=== PATIENT | male | born 1970 | race Caucasian/White ===

== ENCOUNTER 2024-08-21 13:07 | Inpatient (IN) | payer OTHER ==
[2024-08-21 13:50] VITALS: BMI 22.2
[2024-08-21] MEDS ORDERED: POLYETHYLENE GLYCOL (HEALTHYLAX) 3350 17 GM PACKET PO PRN (16:05)
[2024-08-21] MEDS ORDERED: ACETAMINOPHEN 325 MG TABLET (FP) PO PRN (16:05)
[2024-08-21] MEDS ORDERED: IBUPROFEN 400 MG TABLET (FP) PO PRN (16:05)
[2024-08-21] MEDS ORDERED: hydrOXYzine PAMOATE 25 MG CAPSULE (FP) PO PRN (16:05)
[2024-08-21] MEDS ORDERED: BENZOCAINE/MENTHOL (CHLORASEPTIC ) LOZENGE MM PRN (16:05)
[2024-08-21] MEDS ORDERED: NICOTINE POLACRILEX 4 MG LOZENGE BC PRN (16:05)
[2024-08-21] MEDS ORDERED: NALOXONE (NARCAN) HCL 4 MG/0.1 ML SPRAY NS PRN (16:05)
[2024-08-21] MEDS ORDERED: MAGNESIUM HYDROX 2400MG/30ML ORAL SUSPENSION 30 ML CUP PO PRN (16:05)
[2024-08-21] MEDS ORDERED: IBUPROFEN 600 MG TABLET (FP) PO PRN (16:05)
[2024-08-21] MEDS ORDERED: DICYCLOMINE HCL 10 MG CAPSULE PO PRN (16:05)
[2024-08-21] MEDS ORDERED: MAG HYDROX/AL HYDROX/SIMETH 30 ML UNIT-DOSE CUP PO PRN (16:05)
[2024-08-21] MEDS ORDERED: ONDANSETRON *ODT* 4 MG TABLET SL PRN (16:05)
[2024-08-21] MEDS ORDERED: diazePAM 5 MG TABLET PO PRN (16:05)
[2024-08-21] MEDS ORDERED: BENZONATATE 200 MG CAPSULE PO PRN (16:05)
[2024-08-21] MEDS ORDERED: guaiFENesin 600 MG TABLET.ER (FP) PO PRN (16:05)
[2024-08-21] MEDS ORDERED: diazePAM 5 MG TABLET ONE (16:39)
[2024-08-21] MEDS: diazePAM 5 MG TABLET PO SCH (16:47)
[2024-08-21] MEDS ORDERED: NICOTINE 21 MG/24 HOURS TOPICAL PATCH ONE (16:57)
[2024-08-21] MEDS: NICOTINE 21 MG/24 HOURS TOPICAL PATCH TD SCH (17:00)
[2024-08-21] MEDS: NALTREXONE HCL 50 MG TABLET PO ONE (17:30)
[2024-08-21] MEDS: METHOCARBAMOL 500 MG TABLET PO PRN (22:18)
[2024-08-21] MEDS: MELATONIN 5 MG TABLETS PO SCH (22:18)
[2024-08-21] MEDS: THIAMINE 100 MG TABLET PO SCH (22:18)
[2024-08-22] MEDS: NICOTINE 21 MG/24 HOURS TOPICAL PATCH TD SCH (09:10)
[2024-08-22] MEDS: NALTREXONE HCL 50 MG TABLET PO SCH (10:08)
[2024-08-22] MEDS: PRENATAL VITAMINS W/ FOLIC ACID TABLET (FP) PO SCH (10:08)
[2024-08-22 11:25] LABS: CHLORIDE 105 mmol/L (98-107); POTASSIUM 4.1 mmol/L (3.5-5.1); SODIUM 140 mmol/L (136-145)
[2024-08-22 11:31] LABS: HEMATOCRIT 49.3 % (35.4-49); HEMOGLOBIN 16.3 GM/dL (11.7-16.9); MCH 31.6 pg (25.7-33.7); MEAN CELL VOLUME 95.6 fl (80-96); PLATELET COUNT 217 10^3/uL (134-434); RBC 5.15 M/mm3 (4.00-5.60); RDW 14.4 % (11.9-15.9); WHITE BLOOD COUNT 7.7 K/mm3 (4.0-10.0)
[2024-08-22 11:37] LABS: CALCIUM 9.3 mg/dL (8.5-10.1)
[2024-08-22 11:38] LABS: ALBUMIN 3.6 g/dl (3.4-5.0); ANION GAP 6 mmol/L (4-13); CO2 30 mmol/L (21-32); GLUCOSE,RANDOM 109 mg/dL (74-106)
[2024-08-22 11:41] LABS: CREATININE 0.9 mg/dL (0.55-1.3); SGOT/AST 51 U/L (15-37); SGPT/ALT 46 U/L (13-61)
[2024-08-22 11:43] LABS: ALK PHOS 69 U/L (45-117); BILIRUBIN,TOTAL 1.3 mg/dL (0.2-1); TOT PROT 7.7 g/dl (6.4-8.2)
[2024-08-22] MEDS: BISMUTH SUBSALICYLATE 524 MG/30 ML PO PRN (14:53)
[2024-08-23] MEDS: diazePAM 5 MG TABLET PO SCH (05:18)
[2024-08-23] MEDS: LOPERAMIDE HCL 2 MG CAPSULE PO PRN (09:48)
[2024-08-23] MEDS: PANTOPRAZOLE 40 MG TABLET PO SCH (09:48)
[2024-08-23] MEDS: NICOTINE POLACRILEX 4 MG GUM BUC PRN (09:51)
[2024-08-24] MEDS: diazePAM 5 MG TABLET PO SCH (05:35)
[2024-08-25] MEDS: diazePAM 5 MG TABLET PO ONE (05:31)
[2024-08-25 09:26] VITALS: BP 131/94; PULSE 85; RESP 19; TEMP 98.4
== END 2024-08-25 11:12 | disposition home or self-care (01) | DRG 774 ==
LOC: YASAS 13:07 → Y3N 16:39
PROVIDERS: ADMIT Allergy & Immunology; ATTEND Allergy & Immunology
PROC: HZ2ZZZZ Detoxification Services for Substance Abuse Treatment (ICD-10-PCS; principal; 2024-08-21)
DX: F10.230 Alcohol dependence with withdrawal, uncomplicated (principal); F14.20 Cocaine dependence, uncomplicated; F17.210 Nicotine dependence, cigarettes, uncomplicated; G47.00 Insomnia, unspecified; K21.9 Gastro-esophageal reflux disease without esophagitis
CPT/HCPCS: 36415; 80053; 80305; 80307; 85027; 86780; 93005; 93010

== ENCOUNTER 2024-12-18 10:51 | Inpatient (IN) | payer OTHER ==
[2024-12-18 11:19] VITALS: BMI 21.1
[2024-12-18] MEDS ORDERED: NALOXONE (NARCAN) HCL 4 MG/0.1 ML SPRAY NS PRN (11:50)
[2024-12-18] MEDS ORDERED: BENZOCAINE/MENTHOL (CHLORASEPTIC ) LOZENGE MM PRN (11:50)
[2024-12-18] MEDS ORDERED: guaiFENesin 600 MG TABLET.ER (FP) PO PRN (11:50)
[2024-12-18] MEDS ORDERED: BISMUTH SUBSALICYLATE 262 MG/15 ML BTL PO PRN (11:50)
[2024-12-18] MEDS ORDERED: MAG HYDROX/AL HYDROX/SIMETH 30 ML UNIT-DOSE CUP PO PRN (11:50)
[2024-12-18] MEDS ORDERED: ONDANSETRON *ODT* 4 MG TABLET SL PRN (11:50)
[2024-12-18] MEDS ORDERED: MAGNESIUM HYDROX 2400MG/30ML ORAL SUSPENSION 30 ML CUP PO PRN (11:50)
[2024-12-18] MEDS ORDERED: ACETAMINOPHEN 325 MG TABLET (FP) PO PRN (11:50)
[2024-12-18] MEDS ORDERED: IBUPROFEN 600 MG TABLET (FP) PO PRN (11:50)
[2024-12-18] MEDS ORDERED: IBUPROFEN 400 MG TABLET (FP) PO PRN (11:50)
[2024-12-18] MEDS ORDERED: DICYCLOMINE HCL 10 MG CAPSULE PO PRN (11:50)
[2024-12-18] MEDS ORDERED: LOPERAMIDE HCL 2 MG CAPSULE PO PRN (11:50)
[2024-12-18] MEDS ORDERED: BENZONATATE 200 MG CAPSULE PO PRN (11:50)
[2024-12-18] MEDS ORDERED: diazePAM 5 MG TABLET PO PRN (11:50)
[2024-12-18] MEDS ORDERED: POLYETHYLENE GLYCOL (HEALTHYLAX) 3350 17 GM PACKET PO PRN (11:50)
[2024-12-18] MEDS ORDERED: NALTREXONE HCL 50 MG TABLET PO ONE (11:53)
[2024-12-18] MEDS: NALTREXONE HCL 50 MG TABLET PO ONE (13:23)
[2024-12-18] MEDS ORDERED: NICOTINE POLACRILEX 2 MG GUM BUC PRN (17:02)
[2024-12-18] MEDS: diazePAM 5 MG TABLET PO SCH (17:03)
[2024-12-18] MEDS: MELATONIN 5 MG TABLETS PO SCH (22:23)
[2024-12-18] MEDS: METHOCARBAMOL 500 MG TABLET PO PRN (22:23)
[2024-12-18] MEDS: hydrOXYzine PAMOATE 25 MG CAPSULE (FP) PO PRN (22:23)
[2024-12-18] MEDS: MIRTAZAPINE 15 MG TABLET (FP) PO SCH (22:23)
[2024-12-18] MEDS: THIAMINE 100 MG TABLET PO SCH (22:24)
[2024-12-19] MEDS: PRENATAL VITAMINS W/ FOLIC ACID TABLET (FP) PO SCH (10:09)
[2024-12-19] MEDS: NALTREXONE HCL 50 MG TABLET PO SCH (10:09)
[2024-12-19 11:22] LABS: HEMOGLOBIN 15.5 g/dL (13.7-17.5); MEAN CELL VOLUME 90.9 fl (79.0-92.2); MEAN PLT VOLUME 11.5 fl (9.4-12.4); PLATELET COUNT 264 x10^3/uL (163-337); RDW 13.3 % (12.2-16.1)
[2024-12-19 11:23] LABS: POTASSIUM 3.2 mmol/L (3.5-5.1)
[2024-12-19 11:29] LABS: CALCIUM 9.4 mg/dL (8.5-10.1)
[2024-12-19 11:30] LABS: ALBUMIN 3.6 g/dl (3.4-5.0); BLOOD UREA NITROGEN 9.7 mg/dL (7-18)
[2024-12-19 11:33] LABS: BILIRUBIN,TOTAL 0.3 mg/dL (0.2-1); CREATININE 0.7 mg/dL (0.55-1.3); TOT PROT 7.2 g/dl (6.4-8.2)
[2024-12-19] MEDS: POTASSIUM CHLORIDE ORAL LIQUID 20 MEQ/15 ML PO ONE ×3 (14:02→17:23)
[2024-12-20] MEDS: diazePAM 5 MG TABLET PO SCH (06:12)
[2024-12-21] MEDS: diazePAM 5 MG TABLET PO SCH (06:29)
[2024-12-21 07:14] VITALS: BP 116/69; PULSE 89; RESP 18; TEMP 97.6
[2024-12-22] MEDS ORDERED: diazePAM 5 MG TABLET PO ONE (06:00)
== END 2024-12-21 09:02 | disposition home or self-care (01) | DRG 774 ==
LOC: YASAS 10:51 → Y6N 12:42
PROVIDERS: ADMIT Family Medicine; ATTEND Family Medicine
PROC: HZ2ZZZZ Detoxification Services for Substance Abuse Treatment (ICD-10-PCS; principal; 2024-12-18)
DX: F10.230 Alcohol dependence with withdrawal, uncomplicated (principal); F14.20 Cocaine dependence, uncomplicated; F17.210 Nicotine dependence, cigarettes, uncomplicated; E87.6 Hypokalemia; G47.00 Insomnia, unspecified; Z59.00 Homelessness unspecified
CPT/HCPCS: 36415; 80053; 80305; 80307; 82962; 84132; 85027; 86780; 93005; 93010